=== PATIENT | female | born 1955 | race Caucasian/White ===

== ENCOUNTER → 2023-12-16 08:00 | Outpatient (REF) | payer MEDICARE, OTHER, SELFPAY ==
[2023-12-16 09:02] LABS: % Basophils 0.7 % (0-2); % Eosinophils 3.8 % (0-6); % Immature Granulocytes 0.3 % (0-0.5); % Lymphocytes 21.6 % (20.5-51.1); % Monocytes 6.8 % (1.7-9.3); % Neutrophils 66.8 % (42.2-75.2); Absolute Basophils 0.1 10^3/uL (0-0.2); Absolute Eosinophils 0.3 10^3/uL (0-0.7); Absolute Lymphocytes 1.5 10^3/uL (1.2-3.4); Absolute Monocytes 0.5 10^3/uL (0.1-0.6); Absolute Neutrophils 4.7 10^3/uL (1.4-6.5); Hematocrit 43.1 % (37.0-47.0); Hemoglobin 14.8 g/dL (12.0-16.0); Mean Corp Hgb Conc. 34.3 g/dL (33.0-37.0); Mean Corpuscular Hgb 30.9 pg (27.0-31.0); Mean Platelet Volume 9.6 fL (7.4-10.4); Nucleated Red Blood Cells % 0 %; Platelet Count 306 10^3/uL (130-400); Red Blood Cell Count 4.79 10^6/uL (4.20-5.40); Red Cell Dist. Width 12.4 % (11.5-14.5); White Blood Cell Count 7.1 10^3/uL (4.8-10.8)
[2023-12-16 10:21] LABS: Glycohemoglobin (HgbA1c) 6.6 % (4.0-5.6)
[2023-12-16 10:24] LABS: ALT (SGPT) 16 U/L (0-35); AST (SGOT) 23 U/L (14-36); Albumin 4.4 g/dl (3.5-5.0); Alkaline Phosphatase 109 U/L (38-126); Blood Urea Nitrogen 14 mg/dl (7-17); Calcium 9.4 mg/dl (8.4-10.2); Carbon Dioxide 27 mmol/L (22-30); Chloride 102 mmol/L (98-107); Glucose 118 mg/dl (70-99); HDL Cholesterol 70 mg/dl; LDL Cholesterol, Calculated 141 mg/dl; Potassium 4.4 mmol/L (3.5-5.1); Sodium 141 mmol/L (135-145); Total Bilirubin 1.3 mg/dl (0.2-1.3); Total Cholesterol 242 mg/dl (50-199); Total Protein 7.4 g/dl (6.3-8.2); Triglyceride 157 mg/dl (10-149); Very Low Density Lipoprotein 31 mg/dl (0-30); eGFR > 60.00
[2023-12-16 10:50] LABS: TSH Reflex To Free T4 0.57 uIU/ml (0.47-4.68)
== END ==
LOC: WDC 08:00
PROVIDERS: ATTENDING PHYSICIAN Family Medicine
DX: Z12.31 Encounter for screening mammogram for malignant neoplasm of breast (principal); E11.9 Type 2 diabetes mellitus without complications; E78.00 Pure hypercholesterolemia, unspecified; R73.9 Hyperglycemia, unspecified; I87.2 Venous insufficiency (chronic) (peripheral)
CPT/HCPCS: 36415; 77063; 77067; 80053; 80061; 83036; 84443; 85025

== ENCOUNTER → 2024-12-19 08:01 | Outpatient (REF) | payer MEDICARE, OTHER, SELFPAY | LOC: WDC 08:01 | PROVIDERS: ATTENDING PHYSICIAN Internal Medicine | DX: Z12.31 Encounter for screening mammogram for malignant neoplasm of breast (principal) | CPT/HCPCS: 77063; 77067 ==